=== PATIENT | female | born 1965 | race Caucasian/White ===

== ENCOUNTER 2017-09-16 12:15 | Emergency (ER) | payer MEDICARE, OTHER ==
[~2017-09-16] VITALS: Ht 167.6 cm; Wt 117.3 kg
[2017-09-16 12:21] VITALS: BP 125/73
[2017-09-16] MEDS ORDERED: IBUPROFEN600 MG PO (14:40)
== END 2017-09-16 14:56 | disposition home or self-care (01) ==
LOC: ED 12:15
DX: S72.422A Displaced fracture of lateral condyle of left femur, initial encounter for closed fracture (principal); E11.9 Type 2 diabetes mellitus without complications; I10 Essential (primary) hypertension; W01.0XXA Fall on same level from slipping, tripping and stumbling without subsequent striking against object, initial encounter; Y92.009 Unspecified place in unspecified non-institutional (private) residence as the place of occurrence of the external cause